=== PATIENT | male | born 1940 | race Caucasian/White ===

== ENCOUNTER 2017-05-26 14:02 | Day surgery (SDC) | payer OTHER ==
[~2017-05-26] VITALS: Ht 170.2 cm; Wt 81.6 kg
[2017-05-26 14:26] VITALS: BP 149/74
[2017-05-26] MEDS ORDERED: LACTATED RINGERS 1,000 ML IV SCH (14:31)
[2017-05-26] MEDS ORDERED: none per pt (14:33)
[2017-05-26] MEDS ORDERED: BUPIVACAINE/PF 0.5% ONE (14:34)
[2017-05-26 14:36] VITALS: BP 149/74
[2017-05-26] MEDS ORDERED: FENTANYL PF 100 MCG/2ML ONE (14:50)
[2017-05-26] MEDS ORDERED: HYDROmorphone 1 MG/ML, 1ML IV PRN (15:00)
[2017-05-26] MEDS ORDERED: ACETAMINOPHEN 325 MG TABLET PO PRN (15:00)
[2017-05-26] MEDS ORDERED: ONDANSETRON 2MG/ML, 2ML IVPush PRN (15:00)
[2017-05-26] MEDS ORDERED: HYDROcodone/APAP 7.5-325MG/15ML UDC PO PRN (15:00)
[2017-05-26] MEDS ORDERED: FENTANYL PF 100 MCG/2ML IV PRN (15:00)
[2017-05-26] MEDS ORDERED: OXYcodone 5 MG/5 ML ORAL.SOL UDC PO PRN (15:00)
[2017-05-26] MEDS ORDERED: PROPOFOL 10 MG/ML, 20ML ONE (15:01)
[2017-05-26] MEDS ORDERED: ONDANSETRON 2MG/ML, 2ML ONE (15:01)
[2017-05-26] MEDS ORDERED: DEXAMETHASONE 4 MG/ML, 5ML ONE (15:01)
[2017-05-26] MEDS ORDERED: CEFAZOLIN 1,000 MG ONE (15:01)
[2017-05-26] MEDS ORDERED: LABETALOL 5MG/ML 40ML VIAL ONE (15:01)
[2017-05-26] MEDS ORDERED: HYDROmorphone 1 MG/ML, 1ML ONE (15:21)
[2017-05-26] MEDS ORDERED: ACETAMINOPHEN 650 MG/20.3 ML UDC ONE (16:58)
[2017-05-26] MEDS ORDERED: OXYcodone 5 MG/5 ML ORAL.SOL UDC ONE (16:59)
== END 2017-05-26 18:50 | disposition home or self-care (01) ==
LOC: OR 14:02
PROVIDERS: ATTEND Orthopaedic Surgery
DX: M72.0 Palmar fascial fibromatosis [Dupuytren] (principal); K21.9 Gastro-esophageal reflux disease without esophagitis; Z87.39 Personal history of other diseases of the musculoskeletal system and connective tissue
CPT/HCPCS: 26123; 26125; 88305; 93005; J0690; J1100; J1170; J2405; J2704; J3010; J3490

== ENCOUNTER 2017-09-14 05:47 | Day surgery (SDC) | payer OTHER ==
[~2017-09-14] VITALS: Ht 170.2 cm; Wt 79.5 kg
[~2017-09-14 05:47] MED LIST: none per pt
[2017-09-14] MEDS ORDERED: EPINEPHRINE 1 MG/ML, 1ML ONE (06:17)
[2017-09-14] MEDS ORDERED: BUPIVACAINE/PF 0.25% ONE (06:17)
[2017-09-14] MEDS ORDERED: LACTATED RINGERS 1,000 ML IV SCH (06:18)
[2017-09-14 06:20] VITALS: BP 139/81
[2017-09-14] MEDS ORDERED: LIDOCAINE 1%, 2ML SQ PRN (06:30)
[2017-09-14] MEDS ORDERED: MIDAZOLAM 1 MG/ML, 2ML ONE (06:47)
[2017-09-14] MEDS ORDERED: FENTANYL PF 250 MCG/5ML ONE (06:47)
[2017-09-14] MEDS ORDERED: PROPOFOL 10 MG/ML, 20ML ONE (07:13)
[2017-09-14] MEDS ORDERED: ONDANSETRON 2MG/ML, 2ML ONE (07:13)
[2017-09-14] MEDS ORDERED: DEXAMETHASONE 4 MG/ML, 1ML ONE (07:13)
[2017-09-14] MEDS ORDERED: CEFAZOLIN 1,000 MG ONE (07:13)
[2017-09-14] MEDS ORDERED: MEPERIDINE/PF 25MG/0.5ML IVPush PRN (07:30)
[2017-09-14] MEDS ORDERED: OXYcodone 5 MG/5 ML ORAL.SOL UDC PO PRN (07:30)
[2017-09-14] MEDS ORDERED: DIAZEPAM 5 MG/ML, 2ML IVPush PRN (07:30)
[2017-09-14] MEDS ORDERED: MIDAZOLAM 1 MG/ML, 2ML IV PRN (07:30)
[2017-09-14] MEDS ORDERED: LABETALOL 5MG/ML, 20ML IV PRN (07:30)
[2017-09-14] MEDS ORDERED: LORazepam 2 MG/ML, 1ML IVPush PRN (07:30)
[2017-09-14] MEDS ORDERED: HYDROmorphone 1 MG/ML, 1ML IV PRN (07:30)
[2017-09-14] MEDS ORDERED: ACETAMINOPHEN 325 MG TABLET PO PRN (07:30)
[2017-09-14] MEDS ORDERED: FENTANYL PF 100 MCG/2ML IV PRN (07:30)
[2017-09-14] MEDS ORDERED: ONDANSETRON 2MG/ML, 2ML IVPush PRN (07:30)
[2017-09-14] MEDS ORDERED: ALBUTEROL/IPRATROPIUM 2.5MG/0.5MG, 3 ML NPPB PRN (07:30)
[2017-09-14] MEDS ORDERED: hydrALAzine 20 MG/ML, 1ML IV PRN (07:30)
[2017-09-14] MEDS ORDERED: PROMETHAZINE 25 MG/ML, 1ML IV PRN (07:30)
[2017-09-14] MEDS ORDERED: OXYcodone 5 MG/5 ML ORAL.SOL UDC ONE (08:19)
[2017-09-14] MEDS ORDERED: ACETAMINOPHEN 650 MG/20.3 ML UDC ONE (08:19)
== END 2017-09-14 09:40 ==
LOC: OUT 05:47
PROVIDERS: ATTEND Orthopaedic Surgery
DX: M72.0 Palmar fascial fibromatosis [Dupuytren] (principal)
CPT/HCPCS: 26123; 26125; J0171; J0690; J1100; J2250; J2405; J2704; J3010; J3490; J7120